=== PATIENT | male | born 2000 | race African-American/Black ===

== ENCOUNTER 2022-11-28 18:29 | Emergency (ER) | payer OTHER ==
[~2022-11-28] VITALS: Ht 175.3 cm; Wt 90.0 kg
[2022-11-28 18:35] VITALS: TEMP 98.4; O2SAT 98
[2022-11-28] MEDS ORDERED: MUPI22OI2 TP (20:48)
[2022-11-28] MEDS ORDERED: ACETAMINOPHEN WITH CODEINE 300/30MG TABLET PO ONE (21:30)
[2022-11-28 21:48] VITALS: BP 135/87; PULSE 112; RESP 20
== END 2022-11-28 21:49 | disposition home or self-care (01) ==
LOC: ER 18:29
DX: L30.9 Dermatitis, unspecified (principal); J45.909 Unspecified asthma, uncomplicated
CPT/HCPCS: 99282